=== PATIENT | male | born 1995 | race Caucasian/White ===

== ENCOUNTER 2017-07-07 19:10 | Emergency (ER) | payer OTHER ==
[~2017-07-07] VITALS: Ht 182.9 cm; Wt 245.0 kg
[2017-07-07] MEDS ORDERED: PIPERACILLIN/TAZOBACTAM SOD 3.375 GM in D5W MINI-BAG PLUS 50 ML IV ONE (20:00)
[2017-07-07] MEDS ORDERED: KETOROLAC 30 MG/ML VIAL (J1885) IV ONE (20:00)
[2017-07-07] MEDS ORDERED: dexameTHASONE 20 MG/5 ML VIAL (J1100) IV ONE (20:00)
[2017-07-07 20:22] LABS: WHITE BLOOD COUNT 12.9 K/mm3 (4.0-10.0)
[2017-07-07 20:23] LABS: BASO % 0.2 % (0.0-1.0); EOS # 0.1 K/mm3 (0.0-0.50); LARGE UNSTAINED CELL # 0.1 K/mm3 (0.0-0.4); LARGE UNSTAINED CELL % 0.9 % (0.0-4.0); LYMPH # 1.5 K/mm3 (1.5-6.5); LYMPH % 10.8 % (24.0-44.0); MEAN CORPUSCULAR HEMOGLOBIN 30.5 pg (27.0-33.0); MEAN CORPUSCULAR HGB CONC 34.2 g/dl (32.0-36.5); MEAN CORPUSCULAR VOLUME 89.1 fl (80.0-96.0); MONO % 7.9 % (0.0-5.0); NEUTROPHILS # 10.2 K/mm3 (1.8-7.7); NEUTROPHILS % 79.2 % (36.0-66.0); PLATELET COUNT, AUTOMATED 258 k/mm3 (150-450); RED CELL DISTRIBUTION WIDTH 12.4 % (11.5-14.5)
[2017-07-07 20:46] LABS: ANION GAP 8 MEQ/L (8-16); BLOOD UREA NITROGEN 10 MG/DL (7-18); CALCIUM LEVEL 8.7 MG/DL (8.5-10.1); CARBON DIOXIDE LEVEL 27 MEQ/L (21-32); CHLORIDE LEVEL 105 MEQ/L (98-107); CREATININE FOR GFR 0.99 MG/DL (0.70-1.30); GLOMERULAR FILTRATION RATE > 60.0 (>60); GLUCOSE, FASTING 93 MG/DL (70-105); POTASSIUM SERUM 3.9 MEQ/L (3.5-5.1); SODIUM LEVEL 140 MEQ/L (136-145)
[2017-07-07] MEDS ORDERED: ISOVUE-370 76% 100ML VIAL (Q9967) As Ordered ONE (20:55)
[2017-07-07] MEDS ORDERED: ZOVI800T PO (21:21)
[2017-07-07] MEDS ORDERED: NS 1,000 ML IV ONE (21:30)
[2017-07-07] MEDS ORDERED: NS 1,000 ML IV SCH (22:15)
--- NOTE | 2017-07-07 22:30 | REPUSA ---
clinical history: pain. Comparison: none. Technique: Multiple axial CT images were obtained from the base of the skull to the upper thorax fter ministration of non-ionic intravenous contrast. Coronal and sagittal reconstructions were also obtai roberto. Findings: The visualized paranasal sinuses are clear. The pterygopalatine fossa, pterygoid plates and pterygoid muscles are unremarkable. There Is significant soft tissue swelling in the posterior right lateral oropharynx, extending into the hypopharynxand larynx. No focal mass or low attenuation flui d collection is identified in this region. There is obliteration of the right valleculae. The visuali zed osseous structures are intact. The airway is patent. No focal mass is appreciated. There is no ev idence of lymphadenopathy. The thyroid gland appears unremarkable. The superficial soft tissues are u nremarkable. The vascular structures demonstrate normal caliber and contour. Impression: Soft tissue swelling in the oropharynx, hypopharynx and pharynx predominately in the righ t lateral aspect, without discrete evidence of mass or abscess. The findings are suggestive of pharyn gitis.
[2017-07-07] MEDS ORDERED: PENI500T PO (23:12)
[2017-07-07 23:33] VITALS: BP 138/75
== END 2017-07-07 23:38 | disposition home or self-care (01) ==
LOC: M ED 19:10
DX: J02.0 Streptococcal pharyngitis (principal)
CPT/HCPCS: 36415; 70491; 80048; 83605; 85025; 86140; 87040; 87880; 96361; 96374; 96375; 99284; J1100; J1885; J2543; Q9967